=== PATIENT | female | born 1945 | race Caucasian/White ===

== ENCOUNTER → 2017-07-05 | Outpatient (CLI) | payer MEDICARE ==
--- NOTE | 2017-07-14 12:19 | ECHO ---
DATE OF SERVICE: 07/05/2017 INDICATIONS: A 72-year-old gentleman with history of aortic stenosis and cardiac murmur was elected for an echocardiographic study for further evaluation of aortic valve lesion and any other structural or functional heart disease. FINDINGS: 1. Study quality was fair. 2. The rhythm is sinus rhythm with PACs. 3. Overall, EF is around 50%. There is moderate concentric LVH. LV dimensions were normal at 5.2 cm in end diastolic dimension. Septal thickness is normal. No LVOT obstruction. There is a notable anteroseptal hypokinesia. 4. RV size and EF were normal. 5. Both atria were moderately dilated. 6. Mitral valve was calcified. There is an eccentric pxvtgtyv-tq-wjgmrm mitral regurgitation, the direction is lateral to the atrium. The regurgitant jet occupies more than 60% of the left atrial size. The left atrium is moderately dilated. This is a chronic qzxtqfst-nv-jtcqtv mitral regurgitation. 7. Mitral valve gradient was 2 mmHg. Therefore, no stenosis. 8. Aortic valve was heavily calcified and fortunately suboptimally seen. The velocity calculated at 2.2 meter per second, aortic valve area was calculated at 0.8 cm2. This is considered as severe aortic stenosis. 9. The valve morphology is uncertain. 10. There is significant turbulence of the flow at the LVOT indicating severity of aortic stenosis. 11. Aguo-lh-iblnnoqv tricuspid regurgitation. PA pressure was significantly elevated at 70 mmHg. 12. No visible pericardial effusion. RECOMMENDATION: Examination and followup for severe aortic stenosis and severe mitral regurgitation with pulmonary hypertension and preserved EF. Lucie Cruz MD DR: EMMANUEL/samuel JOB# [id number]
== END | disposition home or self-care (01) ==
LOC: RT 12:52
PROVIDERS: ATTEND Internal Medicine
DX: I08.0 Rheumatic disorders of both mitral and aortic valves (principal); I27.20 Pulmonary hypertension, unspecified; R01.1 Cardiac murmur, unspecified
CPT/HCPCS: 93307